=== PATIENT | female | born 1990 | race Caucasian/White ===

== ENCOUNTER 2022-03-11 17:14 | Emergency (ER) | payer OTHER ==
[2022-03-11] MEDS ORDERED: ONDANSETRON 4 MG/2 ML VIAL IVP STA (17:37)
[2022-03-11] MEDS ORDERED: SODIUM CHLORIDE 0.9% 1,000 ML IV STA ×2 (17:37)
--- NOTE | 2022-03-11 17:53 | ED Physician Documentation ---
History of Present Illness - Stated complaint Stated Complaint: DIARRHEA,DEHYDRATED,NAUSEA - Chief complaint Chief Complaint: Abd Pain - History obtained from History obtained from: Patient, Family - History of Present Illness Timing: How many weeks ago (2) Pain level max: 6 Pain level now: 4 - Additonal information Additional information: Patient is a 31-year-old female who presents to the emergency department stating she has had intermittent diarrhea over the past 2 weeks. She states sometimes she has no diarrhea, other times it can be up to 4-5 times per day. No blood in the stool. Has had diffuse abdominal pain. Had a CT scan 3 days ago at the [facility]. She states this was reportedly normal. No fevers. No chills. She states that she feels dehydrated. No travel. No antibiotics. Denies any possibility of . Review of Systems Ten Systems: 10 systems reviewed and negative Constitutional: denies: Fever, Chills Nose: denies: Rhinorrhea / runny nose, Congestion Throat: denies: Sore throat Cardiac: denies: Chest pain / pressure, Palpitations Respiratory: denies: Cough GI: reports: Nausea, Diarrhea. denies: Vomiting, Hematemesis, Bloody / black stool : denies: Dysuria, Frequency, Hesitancy, Now EGA Skin: denies: Rash Musculoskeletal: denies: Neck pain, Back pain Neurologic: denies: Headache PD PAST MEDICAL HISTORY - Past Medical History Past Medical History: No - Past Surgical History Past Surgical History: No - Allergies Allergies/Adverse Reactions: Allergies Allergy/AdvReac Type Severity Reaction Status Date / Time acetaminophen [From Vicodin] Allergy Emesis Verified 03/11/22 17:19 hydrocodone [From Vicodin] Allergy Emesis Verified 03/11/22 17:19 - Living Situation Living Situation: reports: With family Living Arrangement: reports: At home - Social History Does the pt smoke?: No Does the pt have substance abuse?: No PD ED PE NORMAL - Vitals Vital signs reviewed: Yes - General General: Alert and oriented X 3, No acute distress - HEENT HEENT: PERRL, Moist mucous membranes - Neck Neck: Supple, no meningeal sign - Cardiac Cardiac: RRR, Strong equal pulses - Respiratory Respiratory: No respiratory distress, Clear bilaterally - Abdomen Abdomen: Soft, Non distended, Other (Mild diffuse tenderness. No peritoneal signs) - Back Back: No CVA TTP - Derm Derm: Warm and dry - Extremities Extremities: No edema - Neuro Neuro: Alert and oriented X 3 - Psych Psych: Normal mood, Normal affect Results - Vitals Vitals: Vital Signs - 24 hr 03/11/22 03/11/22 03/11/22 17:19 18:00 20:04 Temperature 36.5 C Heart Rate 100 Respiratory 16 14 14 Rate Blood Pressure 106/80 O2 Saturation 99 03/11/22 21:01 Temperature 36.4 C L Heart Rate 70 Respiratory 14 Rate Blood Pressure 112/79 O2 Saturation 98 Oxygen O2 Source Room air - Labs Labs: Laboratory Tests 03/11/22 03/11/22 03/11/22 17:50 17:50 18:52 WBC 8.5 RBC 4.96 Hgb 13.6 Hct 41.1 MCV 82.9 MCH 27.4 MCHC 33.1 RDW 14.5 Plt Count 291 MPV 9.9 Neut # (Auto) 5.4 Lymph # (Auto) 2.3 [place] # (Auto) 0.7 Eos # (Auto) 0.1 Baso # (Auto) 0.1 Absolute Nucleated RBC 0.00 Nucleated RBC % 0.0 Sodium 137 Potassium 3.1 L Chloride 102 Carbon Dioxide 24 Anion Gap 11.0 BUN 7 Creatinine 0.7 Estimated GFR (MDRD) 98 Glucose 100 Calcium 8.8 Total Bilirubin 0.7 AST 20 ALT 24 Alkaline Phosphatase 55 Total Protein 6.2 L Albumin 3.8 Globulin 2.4 Albumin/Globulin Ratio 1.6 Lipase 25 Urine Color YELLOW Urine Clarity CLEAR Urine pH 6.0 Ur Specific [place] 1.010 Urine Protein NEGATIVE Urine Glucose (UA) NEGATIVE Urine Ketones TRACE Urine Occult Blood NEGATIVE Urine Nitrite NEGATIVE Urine Bilirubin NEGATIVE Urine Urobilinogen 0.2 (NORMAL) Ur Leukocyte Esterase NEGATIVE Ur Microscopic Review NOT INDICATED Urine Culture Comments NOT INDICATED Urine HCG, Qual NEGATIVE PD MEDICAL DECISION MAKING - ED course Complexity details: reviewed results, re-evaluated patient, considered differential, d/w patient, d/w family ED course: Patient is well-appearing, nontoxic. Afebrile. Tolerating p.o. without difficulty. Feels better after IV fluids. No diarrhea in the emergency department. Unclear etiology of her symptoms. Differential would include irritable bowel syndrome versus inflammatory bowel disease, viral illness. Recommend that she have stool studies done including a stool culture. She will follow-up with her doctor for this. Her recent CT scan from the [facility] is not available at this time for review. Patient counseled regarding signs and symptoms for which I believe and urgent re-evaluation would be necessary. Patient with good understanding of and agreement to plan and is comfortable going home at this time This document was made in part using voice recognition software. While efforts are made to proofread this document, sound alike and grammatical errors may occur. Departure - Departure Disposition: 01 Home, Self Care Clinical Impression: Diarrhea Qualifiers: Diarrhea type: unspecified type Qualified Code(s): R19.7 - Diarrhea, unspecified Condition: Good Instructions: ED Diet Vomiting Diarrhea Follow-Up: LYSSA THOMAS MD [Primary Care Provider] - Tomorrow Comments: The cause of your symptoms is unclear. Please follow-up with your doctor for further care. Return if you worsen. It is recommended that you have stool culture and stool studies performed. Your doctor can send an outpatient order to this for the lab, you were given supplies for this collection at home. As your symptoms have been ongoing for several weeks, they may want to consider referral to a delivery rn as well for possible colonoscopy to evaluate for inflammatory bowel disease or irritable bowel syndrome. Discharge Date/Time: 03/11/22 21:01
[2022-03-11 18:04] LABS: BASOPHILS # (AUTO) 0.1 10^3/uL (0.0-0.1); BASOPHILS % (AUTO) 0.6 %; EOSINOPHILS # (AUTO) 0.1 10^3/uL (0.0-0.7); EOSINOPHILS % (AUTO) 1.5 %; HCT - HEMATOCRIT 41.1 % (37.0-47.0); HGB - HEMOGLOBIN 13.6 g/dL (12.0-16.0); LYMPHOCYTES # (AUTO) 2.3 10^3/uL (1.5-3.5); LYMPHOCYTES % (AUTO) 26.9 %; MEAN CORPUSCULAR HEMOGLOBIN 27.4 pg (27.0-31.0); MEAN CORPUSCULAR HGB CONC 33.1 g/dL (32.0-36.0); MEAN CORPUSCULAR VOLUME 82.9 fL (81.0-99.0); MEAN PLATELET VOLUME 9.9 fL (7.9-10.8); MONOCYTES # (AUTO) 0.7 10^3/uL (0.0-1.0); MONOCYTES % (AUTO) 7.8 %; NEUTROPHILS # (AUTO) 5.4 10^3/uL (1.5-6.6); NEUTROPHILS % (AUTO) 63.1 %; PLT - PLATELET COUNT 291 10^3/uL (130-450); RED BLOOD COUNT 4.96 10^6/uL (4.20-5.40); RED CELL DISTRIBUTION WIDTH 14.5 % (12.0-15.0); WHITE BLOOD COUNT 8.5 x10^3/uL (4.8-10.8)
[2022-03-11 18:13] LABS: ALBUMIN 3.8 g/dL (3.2-5.5); ALBUMIN/GLOBULIN RATIO 1.6 (1.0-2.2); BILIRUBIN,TOTAL 0.7 mg/dL (0.2-1.0); CALCIUM 8.8 mg/dL (8.5-10.3); CREATININE 0.7 mg/dL (0.4-1.0); POTASSIUM 3.1 mmol/L (3.5-5.0); TOTAL PROTEIN 6.2 g/dL (6.7-8.2)
[2022-03-11 19:11] LABS: BILIRUBIN,URINE NEGATIVE (NEGATIVE); GLUCOSE, URINE (UA) NEGATIVE (NEGATIVE); KETONES,URINE (UA) TRACE mg/dL (NEGATIVE); LEUKOCYTE ESTERASE, URINE NEGATIVE (NEGATIVE); NITRITE,URINE NEGATIVE (NEGATIVE); OCCULT BLOOD,URINE NEGATIVE (NEGATIVE); PROTEIN,URINE NEGATIVE (NEGATIVE); UROBILINOGEN,URINE 0.2 (NORMAL) E.U./dL (NORMAL)
[2022-03-11 19:13] LABS: CLARITY,URINE CLEAR (CLEAR); HCG UR QUAL NEGATIVE
[2022-03-11] MEDS ORDERED: HYOSCYAMINE SL 0.125 MG TABLET SL STA (19:22)
[2022-03-11 21:02] VITALS: BP 112/79
== END 2022-03-11 21:01 | disposition home or self-care (01) ==
LOC: ED 17:14
DX: R19.7 Diarrhea, unspecified (principal)
CPT/HCPCS: 36415; 80053; 81003; 81025; 83690; 85025; 96374; 99283; 99284; A9270; 81001; 87086

== ENCOUNTER 2022-03-14 11:58 | Emergency (ER) | payer OTHER ==
[2022-03-14 12:27] LABS: BASOPHILS # (AUTO) 0.1 10^3/uL (0.0-0.1); BASOPHILS % (AUTO) 0.5 %; EOSINOPHILS # (AUTO) 0.1 10^3/uL (0.0-0.7); EOSINOPHILS % (AUTO) 0.6 %; HCT - HEMATOCRIT 45.7 % (37.0-47.0); HGB - HEMOGLOBIN 15.3 g/dL (12.0-16.0); LYMPHOCYTES # (AUTO) 2.2 10^3/uL (1.5-3.5); LYMPHOCYTES % (AUTO) 16.3 %; MEAN CORPUSCULAR HEMOGLOBIN 27.5 pg (27.0-31.0); MEAN CORPUSCULAR HGB CONC 33.5 g/dL (32.0-36.0); MEAN CORPUSCULAR VOLUME 82.2 fL (81.0-99.0); MEAN PLATELET VOLUME 9.9 fL (7.9-10.8); MONOCYTES # (AUTO) 0.9 10^3/uL (0.0-1.0); MONOCYTES % (AUTO) 6.6 %; NEUTROPHILS # (AUTO) 10.1 10^3/uL (1.5-6.6); NEUTROPHILS % (AUTO) 75.8 %; PLT - PLATELET COUNT 328 10^3/uL (130-450); RED BLOOD COUNT 5.56 10^6/uL (4.20-5.40); RED CELL DISTRIBUTION WIDTH 14.5 % (12.0-15.0); WHITE BLOOD COUNT 13.3 x10^3/uL (4.8-10.8)
[2022-03-14] MEDS ORDERED: ONDANSETRON 4 MG/2 ML VIAL IVP STA (12:39)
[2022-03-14] MEDS ORDERED: SODIUM CHLORIDE 0.9% 1,000 ML IV STA (12:39)
[2022-03-14 12:40] LABS: ALBUMIN 4.1 g/dL (3.2-5.5); ALBUMIN/GLOBULIN RATIO 1.4 (1.0-2.2); BILIRUBIN,TOTAL 0.7 mg/dL (0.2-1.0); CALCIUM 9.4 mg/dL (8.5-10.3); CREATININE 0.6 mg/dL (0.4-1.0); POTASSIUM 3.3 mmol/L (3.5-5.0)
--- NOTE | 2022-03-14 12:41 | ED Physician Documentation ---
History of Present Illness - Stated complaint Stated Complaint: VOMITING/NAUSEA - Chief complaint Chief Complaint: Abd Pain - Additonal information Additional information: 31-year-old female presents emergency department for reevaluation of persistent diarrhea and now nausea and vomiting. Reports that she has had diarrhea for the last 2 weeks. Had been seen by my colleague on the with an unremarkable work-up. She also reports that she had a CT of her abdomen and pelvis about 1 week ago that was negative. The diarrhea has not stopped over the last 2 weeks and she reports 30 watery stools over the last 2 days. describes stool as green/yellow. Not mucoid or bloody. She has not taken anything otc for diarreha. She began having nausea and vomiting this morning thus she comes to the ER. No fevers, no dysuria. She has abdominal cramping but no focal pain. No bloody output. Denies any pertinent past medical history no surgical history. She is not a diabetic. No family history of known Crohn's, colitis or inflammatory bowel disorders. Patient denies any travel. Has not eaten any shellfish or seafood recently. No recent antibiotics. Review of Systems Constitutional: denies: Fever, Chills Nose: reports: Reviewed and negative Throat: reports: Reviewed and negative Cardiac: reports: Reviewed and negative Respiratory: reports: Reviewed and negative GI: reports: Abdominal Pain, Nausea, Vomiting, Diarrhea. denies: Bloody / black stool : reports: Reviewed and negative Skin: reports: Reviewed and negative Musculoskeletal: reports: Reviewed and negative PD PAST MEDICAL HISTORY - Past Medical History Past Medical History: No - Past Surgical History Past Surgical History: No - Present Medications Home Medications: Ambulatory Orders Medication Instructions Recorded Confirmed Ondansetron Odt [Zofran] 4 mg TL Q6H PRN #10 tablet 03/14/22 - Allergies Allergies/Adverse Reactions: Allergies Allergy/AdvReac Type Severity Reaction Status Date / Time acetaminophen [From Vicodin] Allergy Emesis Verified 03/14/22 12:03 hydrocodone [From Vicodin] Allergy Emesis Verified 03/14/22 12:03 - Social History Does the pt smoke?: No Smoking Status: Never smoker Does the pt drink ETOH?: No Does the pt have substance abuse?: No PD ED PE NORMAL - General General: Alert and oriented X 3, No acute distress - HEENT HEENT: Atraumatic, Moist mucous membranes - Neck Neck: Supple, no meningeal sign, No adenopathy - Cardiac Cardiac: RRR, No murmur - Respiratory Respiratory: No respiratory distress, Clear bilaterally - Abdomen Abdomen: Normal bowel sounds, Soft, Non distended. No: Non tender (generalized abdominal tenderness, but non focal and no guarding or rebound) - Back Back: No CVA TTP, No spinal TTP - Derm Derm: Normal color, No rash - Extremities Extremities: No deformity, No tenderness to palpate, Normal ROM s pain - Neuro Neuro: Alert and oriented X 3 Eye Opening: Spontaneous Motor: Obeys Commands Verbal: Oriented GCS Score: 15 - Psych Psych: Normal mood Results - Vitals Vitals: Vital Signs - 24 hr 03/14/22 12:03 Temperature 36.5 C Heart Rate 100 Respiratory 16 Rate Blood Pressure 106/67 O2 Saturation 100 Oxygen O2 Source Room air - Labs Labs: Laboratory Tests 03/14/22 03/14/22 03/14/22 12:23 12:23 12:33 WBC 13.3 H RBC 5.56 H Hgb 15.3 Hct 45.7 MCV 82.2 MCH 27.5 MCHC 33.5 RDW 14.5 Plt Count 328 MPV 9.9 Neut # (Auto) 10.1 H Lymph # (Auto) 2.2 [place] # (Auto) 0.9 Eos # (Auto) 0.1 Baso # (Auto) 0.1 Absolute Nucleated RBC 0.00 Nucleated RBC % 0.0 Sodium 137 Potassium 3.3 L Chloride 103 Carbon Dioxide 21 Anion Gap 13.0 BUN 11 Creatinine 0.6 Estimated GFR (MDRD) 117 Glucose 96 Calcium 9.4 Total Bilirubin 0.7 AST 19 ALT 23 Alkaline Phosphatase 63 Total Protein 7.0 Albumin 4.1 Globulin 2.9 Albumin/Globulin Ratio 1.4 Lipase 28 Urine Color YELLOW Urine Clarity CLEAR Urine pH 6.5 Ur Specific [place] 1.025 Urine Protein NEGATIVE Urine Glucose (UA) NEGATIVE Urine Ketones >=80 H Urine Occult Blood NEGATIVE Urine Nitrite NEGATIVE Urine Bilirubin NEGATIVE Urine Urobilinogen 0.2 (NORMAL) Ur Leukocyte Esterase NEGATIVE Ur Microscopic Review NOT INDICATED Urine Culture Comments NOT INDICATED Urine HCG, Qual NEGATIVE - Rads (name of study) CT abd Radiology: Final report received (No acute process) PD MEDICAL DECISION MAKING - ED course Complexity details: reviewed results ED course: 31-year-old female comes to the emergency department for 14 days of diarrhea. She began having vomiting this morning. There is no fevers. No bloody output. Screening labs today show only a mild leukocytosis. Potassium is 3.3. She was given a liter of fluids as well as Zofran here in the emergency department and is tolerating clear liquids. I did request C. difficile and stool culture but patient was unable to provide a sample. She will return a sample if she has a watery bowel movement at home. Given lack of fevers findings on CT to show inflammation or colitis will defer antibiotics. She is given a one-time dose of Imodium. She is recommended lactobacillus or yogurt at home. I did request her to follow-up with [facility] as she likely would benefit from referral to GI. Limited prescription for Zofran is sent to the pharmacy. Emergent return precautions discussed. Departure - Departure Disposition: Home, Self Care Clinical Impression: Vomiting and diarrhea Condition: Stable Record reviewed to determine appropriate education?: Yes Prescriptions: Ondansetron Odt [Zofran] 4 mg TL Q6H PRN #10 tablet PRN Reason: Nausea / Vomiting Comments: Nicole you were seen today in the emergency department because you have had diarrhea for about 14 days. You also began having vomiting this morning. Your screening labs do not show anything worrisome though your white blood cell count was just mildly elevated at 13. The CT that we completed of your abdomen did not show anything worrisome. In particular it did not show bowel or colon inflammation or findings of colitis. We did give you a medication called Zofran here in the emergency department which helps with nausea and you are now tolerating your water. We did give you a one-time dose of Imodium which is an antidiarrheal medication. You can take this once or twice a day [id number] for 1 or 2 days. Use it cautiously as it can cause constipation. I would like you to take lactobacillus [id number] or eat a cup of yogurt with live cultures every day. If you are able to produce a watery stool at home please return to the emergency department and I will order the stool testing as well as C. difficile testing. Simply come to the front office attendant, ask for a Natalie. I will place the orders in the computer. I am working Tuesday, Tuesday and Tuesday. A prescription for Zofran has been sent to the [facility] in [place]. If despite the Imodium you find you are having worsening diarrhea, develop any fevers or have bloody output then you should return immediately to the ER.
[2022-03-14 12:46] LABS: GLUCOSE, URINE (UA) NEGATIVE (NEGATIVE); KETONES,URINE (UA) >=80 mg/dL (NEGATIVE); LEUKOCYTE ESTERASE, URINE NEGATIVE (NEGATIVE); NITRITE,URINE NEGATIVE (NEGATIVE); OCCULT BLOOD,URINE NEGATIVE (NEGATIVE); PH,URINE 6.5 PH (5.0-7.5); PROTEIN,URINE NEGATIVE (NEGATIVE); UROBILINOGEN,URINE 0.2 (NORMAL) E.U./dL (NORMAL)
[2022-03-14 12:54] LABS: BILIRUBIN,URINE NEGATIVE (NEGATIVE); CLARITY,URINE CLEAR (CLEAR); HCG UR QUAL NEGATIVE; ICTOTEST,URINE NEGATIVE
[2022-03-14] MEDS ORDERED: IOPAMIDOL-300 100 ML VIAL ONE (13:00)
[2022-03-14] MEDS ORDERED: IOPAMIDOL-300 100 ML VIAL IVP ONE (13:16)
--- NOTE | 2022-03-14 13:40 | CT Report ---
PROCEDURE: Abdomen/Pelvis W INDICATIONS: 2 weeks of watery diarrhea CONTRAST: IV CONTRAST: Isovue 300 ml: 100 PO CONTRAST: *NO PO CONTRAST TECHNIQUE: After the administration of IV and no oral contrast, 5 mm thick sections acquired from the diaphragms to the symphysis. 5 mm thick coronal and sagittal reformats were acquired. For radiation dose redu ction, the following was used: automated exposure control, adjustment of mA and/or kV according to p atient size. COMPARISON: None. FINDINGS: Image quality: Excellent. ABDOMEN: Lung bases: Lung bases are clear. Heart size is normal. Solid organs: Liver and spleen are normal in size and enhancement. Gallbladder is within normal [place] its Biliary system is non dilated. Pancreas enhances normally. No adrenal nodules. Kidneys demons trate normal size and enhancement, without hydronephrosis. Peritoneum and bowel: Bowel loops demonstrate normal wall thickness and caliber. Several fluid-fille d small and large bowel loops are present. No free fluid or air. Nodes and vessels: No retroperitoneal or mesenteric adenopathy by size criteria. Multiple mildly pr ominent subcentimeter mesenteric lymph nodes are present. Aorta and inferior vena cava are normal in size. Miscellaneous: No ventral hernias. PELVIS: Genitourinary: Bladder wall thickness is normal. Miscellaneous: No inguinal hernias or adenopathy. Bones: No suspicious bony lesions. No vertebral body compression fractures. IMPRESSION: 1. Findings suggestive of gastroenteritis. 2. Normal appendix. Reviewed by: Jerry Archibald MD on 03/14/2022 1:39 PM PDT Approved by: Jerry Archibald MD on 03/14/2022 1:39 PM PDT Station ID: [id number]
[2022-03-14] MEDS ORDERED: LOPERAMIDE 2 MG CAPSULE PO STA (13:52)
[2022-03-14 14:00] VITALS: BP 110/74
== END 2022-03-14 14:11 | disposition home or self-care (01) ==
LOC: ED 11:58
DX: R11.2 Nausea with vomiting, unspecified (principal); R19.7 Diarrhea, unspecified
CPT/HCPCS: 36415; 74177; 80053; 81003; 81025; 83690; 85025; 87493; 96374; 99282; 99284; A9270; Q9967; 81001; 87045; 87046; 87086